=== PATIENT | female | born 1965 | race Caucasian/White ===

== ENCOUNTER 2022-04-10 09:33 | Outpatient (CLI) | payer SELFPAY ==
--- NOTE | 2022-04-10 09:51 | USCV_ITS ---
Bharati Hayden Age: 57 Gender: F : 1965 Exam Date: 04/10/2022 10:57 Ordering Phys: Gerald Smith DO Technologist: Peña Velasquez [place] [facility] [place]: FOOT TINGLING RIGHT LEFT Brachial 126.00 mmHg Brachial 121.00 mmHg Pressure (mmHg) Waveform Pressure (mmHg) Waveform 139.00 HYDROPULPER 140.00 142.00 DPA 140.00 1.12 Ankle/Brachial Index 1.11 89.00 Pre-Exercise Toe Pressure 120.00 0.71 Pre-Exercise Toe/Brachial Index 0.95 FINDINGS Resting CHERIE 1.12 on the right and 1.11 on the left Resting TBI of 0.71 on on the right and 0.95 on the CONCLUSIONS Normal resting ABIs and TBIs bilaterally, suggesting no significant arterial obstruction. Dr Laurita Condon MD [facility] (Electronically Signed) Final Date: 10 April 2022 17:40 S
== END 2022-04-10 09:34 | disposition home or self-care (01) ==
PROVIDERS: PCP Electrodiagnostic Medicine; Visit Provider Electrodiagnostic Medicine
DX: R20.2 Paresthesia of skin (principal)
CPT/HCPCS: 93922

== ENCOUNTER 2024-04-16 15:41 | Outpatient (CLI) | payer SELFPAY ==
--- NOTE | 2024-04-16 15:43 | CT_ITS ---
WS: [id number] CT chest wo con [id number] HISTORY: RECURRENT bronchitis TECHNIQUE: Axial imaging performed through the thorax. Coronal and sagittal reformats are submitted. All CT scans at [facility] use at least one of these dose optimization techniques: automated exposure control; mA and/or kV adjustment per patient size (includes targeted exams where dose is mat ched to clinical indication); or iterative reconstruction. CONTRAST: None DLP: 244.36 mGy.cm COMPARISON: 03/11/2024 Lungs and central airway: Lungs are well aerated. There are a few tiny micronodules which are less th an 3 mm scattered throughout the lungs. No mass or nodule. No pneumonia. Benign granuloma RIGHT lower lobe. No bronchiectasis or air trapping. Pleura: Normal. No pleural effusion. Heart and pericardium: Normal size heart with no pericardial effusion. Mediastinum and nicki: No mediastinum or hilar adenopathy. Vessels: Normal size aortic and pulmonary artery. No coronary artery calcifications. Chest wall and lower neck: No soft tissue masses. Upper abdomen: No adrenal mass. Scattered granulomata in the spleen and liver. Osseous structures: No destructive process. CT/CT chest wo con [id number] IMPRESSION: 1. No pneumonia, pulmonary mass or nodule. 2. No bronchiectasis. 3. No adenopathy identified on this unenhanced exam.
== END 2024-04-16 15:42 | disposition home or self-care (01) ==
LOC: RAD 15:42
PROVIDERS: PCP Electrodiagnostic Medicine; Visit Provider Electrodiagnostic Medicine
DX: J47.9 Bronchiectasis, uncomplicated (principal); J84.10 Pulmonary fibrosis, unspecified; D73.89 Other diseases of spleen; K75.3 Granulomatous hepatitis, not elsewhere classified
CPT/HCPCS: 71250